=== PATIENT | male | born 1990 | race Caucasian/White ===

== ENCOUNTER 2025-03-10 10:59 | Emergency (ER) | payer SELFPAY ==
[~2025-03-10] VITALS: Ht 170.2 cm; Wt 69.9 kg
[2025-03-10 11:13] VITALS: O2SAT 100
[2025-03-10] MEDS ORDERED: IBUP-2029 MT (11:57)
[2025-03-10] MEDS ORDERED: AMOX1TAB16 MT (11:57)
[2025-03-10 12:25] VITALS: BP 123/78; PULSE 64; RESP 16; TEMP 37; O2SAT 100
== END 2025-03-10 12:26 | disposition home or self-care (01) ==
LOC: ER 10:59
DX: K04.7 Periapical abscess without sinus (principal)
CPT/HCPCS: 99283